=== PATIENT | female | born 1965 | race African-American/Black ===

== ENCOUNTER → 2016-10-12 | Outpatient (CLI) | payer BC ==
--- NOTE | 2016-10-12 16:35 | KCIC ---
PROCEDURE Pelvic and transvaginal ultrasound HISTORY Uterine fibroids COMPARISON None FINDINGS Multiple transabdominal sonographic images of the pelvis are submitted. Pelvic structures are poorly visualized. Transvaginal ultrasound: Multiple transvaginal sonographic images of the pelvis are submitted. Uterus is retroverted. Uterus is enlarged at 12 x 8 x 8.1 centimeters. Uterine mass posteriorly centered in the myometrium measures up to 5.4 x 5.1 x 5 centimeters, approximates the endometrial cavity. There is adjacent smaller mass also present on the order of 3.5 x 3.8 by 3.8 centimeters. Endometrium is within normal limits at 0.5 centimeters. Right ovary measured 2.9 x 2.9 x 2.6 centimeters. Left ovary measured 2.6 x 2.2 x 3.2 centimeters. There is normal low resistance vascularity of both ovaries. There is a small quantity of free fluid in the pelvis. IMPRESSION 1. Uterus is enlarged. There are 2 adjacent uterine masses compatible with provided history of fibroids. 2. Small quantity free fluid in the pelvis may be physiologic. Electronically signed by: Julio Cesar Quintanilla MD (Oct 12, 2016 16:33:56)
--- NOTE | 2016-10-12 21:35 | KCIC ---
Bilateral digital screening mammograms with CAD: HISTORY Routine screening COMPARISON Comparison is made to previous examination dated 01/30/2015. FINDINGS Breast density category C. The skin and nipples show no abnormalities. No abnormal lymph nodes are seen in the axilla. The breast parenchyma shows heterogeneous density. There are no dominant masses, suspicious calcifications or architectural distortions. IMPRESSION No evidence of malignancy. Recommend routine annual mammographic screening. This study was interpreted with the benefit of Computerized Aided Detection (CAD). Mammography is not 100% sensitive in detecting breast cancer. Therefore, a self breast exam and a clinical breast exam are very important. A negative mammogram does not negate a clinically suspicious finding and should not result in a delay in biopsying a clinically suspicious abnormality. BI-RADS category 1. Negative. This patient's information has been entered into a reminder system for the patient to be notified with the results of this examination and a target date for her next mammograms. Electronically signed by: Ines Mansfield MD (Oct 12, 2016 21:34:15)
== END | disposition home or self-care (01) ==
LOC: KCIC US 14:53
PROVIDERS: ATTEND Obstetrics & Gynecology
DX: Z12.31 Encounter for screening mammogram for malignant neoplasm of breast (principal); D25.9 Leiomyoma of uterus, unspecified
CPT/HCPCS: 76830; 76856; G0202; 77067

== ENCOUNTER → 2019-03-15 | Outpatient (CLI) | payer BC ==
--- NOTE | 2019-03-15 16:14 | KCIC ---
EXAM: Pelvic sonogram. HISTORY: Uterine fibroids. TECHNIQUE: Transabdominal sonographic imaging of the pelvis was performed. COMPARISON: 10/12/2016. FINDINGS: The uterus measures 11.4 x 7.6 x 8.3 cm. The endometrial stripe measures 9.8 mm in thickness. There are multiple uterine fibroids, the largest of which measures 5.5 cm in maximum dimension. The uterus is retroverted. The ovaries are normal in size and demonstrate normal blood flow. There is no pelvic free fluid. IMPRESSION: 1. Enlarged uterus containing multiple fibroids, the largest of which measures 5.5 cm. This is similar compared to the prior study when allowing for differences in imaging technique. 2. Retroverted uterus. 3. Normal endometrial stripe thickness for the reported premenopausal status of the patient. Electronically signed by: Asia Oreilly MD (03/15/2019 4:11 PM) [place] [id number]
--- NOTE | 2019-03-15 17:31 | KCIC ---
Bilateral digital screening mammograms with 3-D tomosynthesis: Reason for examination: Routine screening. Comparison is made to previous studies dated 10/12/2016 and 01/30/2015. Bilateral mammograms in CC and oblique projections were obtained with 2-D imaging and 3-D tomosynthesis imaging on a Siemens Inspiration unit and reviewed on the workstation. Interpretation was made with the benefit of CAD. The skin and nipples show no abnormalities. No abnormal axillary lymph nodes are seen. The breast parenchyma is heterogeneously dense. (Breast density: Category C.) There appears to be a small circumscribed lesion in the cysts subareolar position of the right breast seen best on CC view and measuring approximately 1 cm in size. There is also suggestion of a nodular density medially in the left breast on cc view measuring approximately 7.4 mm in size and located approximately 7 cm from the nipple. Further evaluation with ultrasound is recommended. There are no other dominant masses, suspicious calcifications or architectural distortion. Impression: Nodular densities in the subareolar position of the right breast and in the left breast posterior medially probably around the 9:00 position. Recommend further evaluation with ultrasound. Your patient's mammogram demonstrates that she has dense breast tissue (breast density category C or D), which could hide abnormalities, and if she has other risk factors for breast cancer that have been identified, she might benefit from supplemental screening tests that may be suggested by you as her ordering physician. Dense breast tissue, in and of itself, is a relatively common condition. Therefore, this information is not provided to cause undue concern, but rather to raise your awareness and to promote discussion with your patient regarding the presence of other risk factors, in addition to dense breast tissue. Your patient's mammography results will be sent to her. BI-RAD Category 0: Incomplete. Needs additional imaging evaluation. "Our facility is accredited by the [employer] Mammography [employer]." This patient's information has been entered into a reminder system for the patient to be notified with the results of her examination and a target date for the next mammogram. Electronically signed by: Chrissy Mansifeld MD (03/15/2019 5:28 PM) [id number]
== END | disposition home or self-care (01) ==
LOC: KCIC US 15:03
PROVIDERS: ATTEND Obstetrics & Gynecology
DX: Z12.31 Encounter for screening mammogram for malignant neoplasm of breast (principal); N64.89 Other specified disorders of breast; D25.9 Leiomyoma of uterus, unspecified; N85.4 Malposition of uterus; N85.2 Hypertrophy of uterus
CPT/HCPCS: 76856; 77063; 77067

== ENCOUNTER → 2019-05-09 | Outpatient (CLI) | payer BC ==
--- NOTE | 2019-05-09 17:00 | KCIC ---
Bilateral breast ultrasound: Reason for examination: Nodular densities on screening mammogram. Comparison is made to mammographic exam dated 03/15/2019. Ultrasound examination was performed bilaterally in the areas of mammographic concern and at the axilla. The right breast shows presence of ductal ectasia. In the 12:00 position 2 cm from the nipple, there is a 1.2 cm hypoechoic circumscribed lesion with vascular flow consistent with a intraductal papilloma. Ultrasound-guided biopsy is recommended. No other cystic or solid lesions are seen. No abnormal appearing lymph nodes are seen in the right axilla. In the left breast at the 10:00 position 6 cm from the nipple, there is an anechoic lesion measuring 5.7 mm in size consistent with a cyst. No other cystic or solid lesions are seen. No abnormal appearing lymph nodes are seen in left axilla. IMPRESSION: Small cyst in the 10:00 position of the left breast measuring 5.7 mm in size. 1.2 cm solid lesion with vascular flow consistent with an intraductal papilloma in the 12:00 position 2 cm from the nipple in the right breast. Recommend ultrasound-guided biopsy. BI-RADS Category 4: Suspicious. These findings have been discussed with the patient and the patient was instructed to follow-up with Dr. Trujillo. "Our facility is accredited by the [employer] Mammography Program." Electronically signed by: Chrissy Mansfield MD (05/09/2019 4:57 PM) [id number]
== END | disposition home or self-care (01) ==
LOC: KCIC US 10:53
PROVIDERS: ATTEND Obstetrics & Gynecology
DX: N60.02 Solitary cyst of left breast (principal); N64.89 Other specified disorders of breast; D24.2 Benign neoplasm of left breast; Z12.31 Encounter for screening mammogram for malignant neoplasm of breast
CPT/HCPCS: 76641